=== PATIENT | male | born 1965 | race Caucasian/White ===

== ENCOUNTER 2019-02-24 01:47 | Emergency (ER) | payer BC, OTHER, SELFPAY ==
[2019-02-24] MEDS ORDERED: MORPHINE 4 MG/ML SYR ONE ×2 (02:41→04:08)
[2019-02-24] MEDS ORDERED: ONDANSETRON 4 MG/2 ML VIAL ONE (02:41)
[2019-02-24 02:52] LABS: Absolute Lymphocytes (CBC) 1.3 K/uL (0.7-4.9); Basophils % 0.8 % (0-1.3); Hematocrit 45.7 % (39.6-49.0); Lymphocytes % 19.3 % (15.3-44.8); MPV 9.2 fL (7.6-11.3); RBC Red Blood Cell Count 5.25 M/uL (4.33-5.43)
[2019-02-24 03:16] LABS: Potassium 4.3 mmol/L (3.5-5.1)
[2019-02-24 04:35] LABS: Urine Blood 3+ (NEG); Urine Glucose 2+ (NEG); Urine Protein NEGATIVE (NEG); Urine Specific Gravity 1.015 (1.005-1.030); Urine pH 5.5 (5.0-7.0)
--- NOTE | 2019-02-24 04:50 | ER ---
Nurse's Notes [facility] Name: Vasiliy Boyce Age: 53 yrs Sex: Male : 1965 Arrival Date: 02/24/2019 Time: 01:49 Bed 13 Private MD: Diagnosis: Hydrocele, unspecified;Varicocele Presentation: 02/24 02:02 Presenting complaint: Patient states: woke up at 12:15 with severe right testicular wh pain. Transition of care: patient was not received from another setting of care. Onset of symptoms was February 24, 2019. Risk Assessment: Do you want to hurt yourself or someone else? Patient reports no desire to harm self or others. Initial Sepsis Screen: Does the patient meet any 2 criteria? No. Patient's initial sepsis screen is negative. Does the patient have a suspected source of infection? No. Patient's initial sepsis screen is negative. Care prior to arrival: None. 02:02 Method Of Arrival: Ambulatory 02:02 Acuity: OZ 3 Historical: - Allergies: 02:04 No Known Allergies; - Home Meds: 02:04 None [Active]; - PMHx: 02:04 Borderline Diabetes; - PSHx: 02:04 Appendectomy; - Immunization history:: Adult Immunizations up to date. - Social history:: Smoking status: Patient/guardian denies using tobacco. - Ebola Screening: : Patient negative for fever greater than or equal to 101.5 degrees Fahrenheit, and additional compatible Ebola Virus Disease symptoms Patient denies exposure to infectious person. - Family history:: not pertinent. - Hospitalizations: : No recent hospitalization is reported. Screenin:05 Abuse screen: Denies threats or abuse. Denies injuries from another. Nutritional screening: No deficits noted. Tuberculosis screening: No symptoms or risk factors identified. Fall Risk None identified. Assessment: 02:04 General: Appears in no apparent distress. Behavior is calm, cooperative, appropriate for age. Pain: Complains of pain in Right testicle Pain radiates to back Pain currently is 7 out of 10 on a pain scale. Quality of pain is described as sharp, Pain began 2 hours ago. Neuro: Level of Consciousness is awake, alert, obeys commands, Oriented to person, place, time, situation, Appropriate for age. Cardiovascular: Capillary refill < 3 seconds. Respiratory: Airway is patent Respiratory effort is even, unlabored, Respiratory pattern is regular, symmetrical. GI: Abdomen is flat, non-distended. : No signs and/or symptoms were reported regarding the genitourinary system. EENT: No signs and/or symptoms were reported regarding the EENT system. Derm: Skin is intact, is healthy with good turgor, Skin is pink, warm \T\ dry. normal. Musculoskeletal: Circulation, motion, and sensation intact. 03:02 Reassessment: Patient appears in no apparent distress at this time. No changes from previously documented assessment. Patient and/or family updated on plan of care and expected duration. Pain level reassessed. Patient is alert, oriented x 3, equal unlabored respirations, skin warm/dry/pink. 04:17 Reassessment: Patient appears in no apparent distress at this time. No changes from previously documented assessment. Patient and/or family updated on plan of care and expected duration. Pain level reassessed. Patient is alert, oriented x 3, equal unlabored respirations, skin warm/dry/pink. MD at bedside explaning POC Patient states symptoms have improved. 05:07 Reassessment: Patient appears in no apparent distress at this time. No changes from previously documented assessment. Patient and/or family updated on plan of care and expected duration. Pain level reassessed. Patient is alert, oriented x 3, equal unlabored respirations, skin warm/dry/pink. Patient denies pain at this time. Patient states feeling better. Patient states symptoms have improved. Vital Signs: 02:06 BP 135 / 85; Pulse 72; Resp 18; Temp 98.4; Pulse Ox 96% ; Weight 117.93 kg; Height 5 wh ft. 10 in. (177.80 cm); Pain 7/10; 03:05 BP 115 / 85; Pulse 76; Resp 18; Pulse Ox 93% on R/A; wh 04:18 BP 113 / 72; Pulse 72; Resp 18; Pulse Ox 95% on R/A; 02:06 Body Mass Index 37.31 (117.93 kg, 177.80 cm) ED Course: 01:49 Patient arrived in ED. ds1 02:02 Yahir Galo is Primary Nurse. 02:03 Triage completed. 02:06 Arm band placed on right wrist. 02:06 Patient has correct armband on for positive identification. Placed in gown. Bed in low wh position. Call light in reach. Side rails up X 1. Pulse ox on. NIBP on. 02:12 Abdirashid Murray MD is Attending Physician. rn 02:35 Inserted saline lock: 20 gauge in right antecubital area, using aseptic technique. Blood collected. 03:05 CT completed. Patient tolerated procedure well. Patient moved to CT via stretcher. Patient moved back from CT. 03:09 CT Stone Protocol In Process Unspecified. EDMS 03:21 Ultrasound completed. Patient tolerated well. sg3 03:21 US Scrotum Testicles In Process Unspecified. sg3 03:38 Notified Primary Nurse . 3 05:08 No provider procedures requiring assistance completed. IV discontinued, intact, bleeding controlled, No redness/swelling at site. Administered Medications: 02:38 Drug: morphine 4 mg {Note: RASS 0.} Route: IVP; Site: right antecubital; 03:54 Follow up: Response: No adverse reaction; Pain is decreased; RASS: Alert and Calm (0) 02:40 Drug: Zofran 4 mg Route: IVP; Site: right antecubital; 03:54 Follow up: Response: No adverse reaction 04:08 Drug: morphine 4 mg Route: IVP; Site: right antecubital; 05:09 Follow up: Response: No adverse reaction; Pain is decreased; RASS: Alert and Calm (0) Outcome: 04:49 Discharge ordered by MD. rn 05:08 Discharged to home ambulatory, with family. 05:08 Condition: stable 05:08 Discharge instructions given to patient, family, Instructed on discharge instructions, follow up and referral plans. no drinking with medication, no driving heavy equipment, medication usage, POC Demonstrated understanding of instructions, follow-up care, medications, POC Prescriptions given X 2. 05:09 Patient left the ED. Signatures: Dispatcher [employer] EDKS Cedrick Pena Yeni Oconnell ds1 Abdirashid Murray MD MD rn Habalo, Yahir Lilly Stanton sg3 Corrections: (The following items were deleted from the chart) 07:05 03:53 In radiology for Scrotum Testicles+[email or web address]. EDMS sg3 07:05 03:53 Ultrasound completed. Patient tolerated well. [place] [id number] 07:05 03:53 Notified Primary Nurse . [place] [id number] 07:08 03:38 Ultrasound completed. Patient tolerated well. [place] [id number] 07:12 03:38 Ultrasound completed. Patient tolerated well. [place] [id number]
--- NOTE | 2019-02-24 04:51 | EDPHYS ---
Physician Documentation [facility] Name: Vasiliy Boyce Age: 53 yrs Sex: Male : 1965 Arrival Date: 02/24/2019 Time: 01:49 Bed 13 Private MD: ED Physician Abdirashid Murray HPI: 02/24 04:06 This 53 yrs old Male presents to ER via Ambulatory with complaints of rn Testicular Pain. 04:06 The patient presents with scrotal pain, of the right side, without swelling, without rn erythema. Onset: The symptoms/episode began/occurred 2 hour(s) ago. Modifying factors: The symptoms are alleviated by nothing, the symptoms are aggravated by nothing. Severity of symptoms: At their worst the symptoms were moderate, in the emergency department the symptoms are unchanged. The patient has not experienced similar symptoms in the past. Reports woke up with right scrotal pain, denies trauma, no urinary symptoms, no fever. No hx of testicular torsion. . Historical: - Allergies: 02:04 No Known Allergies; - Home Meds: 02:04 None [Active]; - PMHx: 02:04 Borderline Diabetes; - PSHx: 02:04 Appendectomy; - Immunization history:: Adult Immunizations up to date. - Social history:: Smoking status: Patient/guardian denies using tobacco. - Ebola Screening: : Patient negative for fever greater than or equal to 101.5 degrees Fahrenheit, and additional compatible Ebola Virus Disease symptoms Patient denies exposure to infectious person. - Family history:: not pertinent. - Hospitalizations: : No recent hospitalization is reported. ROS: 04:06 Constitutional: Negative for fever, chills, and weight loss, Eyes: Negative for injury, rn pain, redness, and discharge, Neck: Negative for injury, pain, and swelling, Cardiovascular: Negative for chest pain, palpitations, and edema, Respiratory: Negative for shortness of breath, cough, wheezing, and pleuritic chest pain, Abdomen/GI: Negative for abdominal pain, nausea, vomiting, diarrhea, and constipation, : Negative for injury, bleeding, discharge, and swelling, MS/Extremity: Negative for injury and deformity, Skin: Negative for injury, rash, and discoloration, Neuro: Negative for headache, weakness, numbness, tingling, and seizure. Exam: 04:06 Constitutional: This is a well developed, well nourished patient who is awake, alert, rn + appears in pain Head/Face: Normocephalic, atraumatic. Abdomen/GI: soft, non-tender Back: No spinal tenderness. No costovertebral tenderness. Full range of motion. Male : + mild right scrotal tenderness without masses, non-tender epididymis on either side, cremasteric reflexes present, no discoloration of tests, no inguinal hernias. MS/ Extremity: Pulses equal, no cyanosis. Neurovascular intact. Full, normal range of motion. Equal circumference. Vital Signs: 02:06 BP 135 / 85; Pulse 72; Resp 18; Temp 98.4; Pulse Ox 96% ; Weight 117.93 kg; Height 5 wh ft. 10 in. (177.80 cm); Pain 7/10; 03:05 BP 115 / 85; Pulse 76; Resp 18; Pulse Ox 93% on R/A; wh 04:18 BP 113 / 72; Pulse 72; Resp 18; Pulse Ox 95% on R/A; wh 02:06 Body Mass Index 37.31 (117.93 kg, 177.80 cm) wh MDM: 02:12 Patient medically screened. rn 02:20 ED course: Ultrasound called out to rule out testicular torsion. rn 03:22 ED course: Ultrasound called out and accelerator technician reports contacted at [phone], still no rn ultrasound performed. . 04:06 Differential diagnosis: UTI, hydrocele, varicocele, testicular torsion, epididymitis. rn Data reviewed: vital signs, nurses notes, lab test result(s), radiologic studies, CT scan, ultrasound, and as a result, I will discharge patient. Counseling: I had a detailed discussion with the patient and/or guardian regarding: the historical points, exam findings, and any diagnostic results supporting the discharge/admit diagnosis, lab results, radiology results, the need for outpatient follow up, to return to the emergency department if symptoms worsen or persist or if there are any questions or concerns that arise at home. Response to treatment: the patient's symptoms have markedly improved after treatment, and as a result, I will discharge patient. Special discussion: I discussed with the patient/guardian in detail that at this point there is no indication for admission to the hospital. It is understood, however, that if the symptoms persist or worsen the patient needs to return immediately for re-evaluation. ED course: U/S neg for torsion, shows bilateral hydroceles and varicoceles, ct no acute abdominal/pelvic findings. Ambulatory to bathroom without assistance or difficulty, much more comfortable. . 04:55 ED course: Possibly passed kidney stone given marked improvement and hematuria without rn infection. 02/24 02:20 Order name: Urine Culture rn 02/24 02:20 Order name: CBC with Diff; Complete Time: 03:17 rn 02/24 02:20 Order name: CT Stone Protocol rn 02/24 02:20 Order name: Basic Metabolic Panel; Complete Time: 03:55 rn 02/24 02:20 Order name: Urine Microscopic Only rn 02/24 04:16 Order name: Urine Dipstick--Ancillary (enter results); Complete Time: 04:49 cm6 02/24 02:20 Order name: Urine Dipstick-Ancillary (obtain specimen); Complete Time: 04:08 rn 02/24 02:20 Order name: IV Start; Complete Time: 02:45 rn 02/24 02:20 Order name: US Scrotum Testicles rn Administered Medications: 02:38 Drug: morphine 4 mg {Note: RASS 0.} Route: IVP; Site: right antecubital; 03:54 Follow up: Response: No adverse reaction; Pain is decreased; RASS: Alert and Calm (0) 02:40 Drug: Zofran 4 mg Route: IVP; Site: right antecubital; 03:54 Follow up: Response: No adverse reaction 04:08 Drug: morphine 4 mg Route: IVP; Site: right antecubital; 05:09 Follow up: Response: No adverse reaction; Pain is decreased; RASS: Alert and Calm (0) Disposition: 02/24/19 04:49 Discharged to Home. Impression: Hydrocele, unspecified, Varicocele. - Condition is Stable. - Discharge Instructions: Varicocele, Hydrocele, Adult. - Prescriptions for Ibuprofen 800 mg Oral Tablet - take 1 tablet by ORAL route every 12 hours As needed take with food; 20 tablet. Tylenol- Codeine #3 300-30 mg Oral Tablet - take 2 tablets by ORAL route every 6 hours As needed; 20 tablet. - Medication Reconciliation Form, Thank You Letter, Antibiotic Education, Prescription Opioid Use form. - Follow up: Private Physician; When: As needed; Reason: Recheck today's complaints, Re-evaluation by your physician. - Problem is new. - Symptoms have improved. Signatures: Dispatcher [employer] Abdirashid Grover MD MD rn Habalo, Winsy wh Corrections: (The following items were deleted from the chart) 05:09 04:49 02/24/2019 04:49 Discharged to Home. Impression: Hydrocele, unspecified; wh Varicocele. Condition is Stable. Forms are Medication Reconciliation Form, Thank You Letter, Antibiotic Education, Prescription Opioid Use. Follow up: Private Physician; When: As needed; Reason: Recheck today's complaints, Re-evaluation by your physician. Problem is new. Symptoms have improved. rn
[2019-02-24 05:17] VITALS: TEMP 98.4
[2019-02-24 05:20] VITALS: BP 113/72; O2SAT 95
[2019-02-24 05:42] LABS: Urine Bacteria <20 /HPF (NONE SEEN); Urine Culture Reflex Order NOT NEEDED; Urine RBC 20-50 /HPF (NONE SEEN)
--- NOTE | 2019-02-24 09:48 | RAD REPORT ---
EXAM DESCRIPTION: US - Scrotum Testicles - 02/24/2019 3:53 am CLINICAL HISTORY: Testicular pain COMPARISON: None FINDINGS: Right testicle measures 4.8 x 2.4 x 3 centimeters. Echotexture is homogeneous. Normal bloo d flow Left testicle measures 4.3 x 2 x 2.3 centimeters. Echotexture is homogeneous. Normal blood flow The epididymides are normal in size and echotexture. Normal blood flow is seen. Small bilateral hydroceles Bilateral varicoceles IMPRESSION: Bilateral varicoceles Small bilateral hydroceles
--- NOTE | 2019-02-25 08:47 | RAD REPORT ---
EXAM DESCRIPTION: CT - Stone Protocol - 02/24/2019 5:24 am CLINICAL HISTORY: The patient is 53 years old and is Male; right groin/testicular pain TECHNIQUE: Axial computed tomography images of the abdomen and pelvis without intravenous contrast. Sagittal and coronal reformatted images were created and reviewed. This CT exam was performed usi ng one or more of the following dose reduction techniques: automated exposure control, adjustment o f the mA and/or kV according to patient size, and/or use of iterative reconstruction technique. DLP: 2295 mGy*cm COMPARISON: None. FINDINGS: LUNG BASES: Minimal bibasilar atelectasis. Lung bases are otherwise clear. HEART: The heart is within normal limits. ABDOMEN: LIVER: Subcentimeter right hepatic hypodensity, too small to characterize by CT criteria. GALLBLADDER AND BILE DUCTS: Unremarkable. No calcified stones. No ductal dilation. PANCREAS: Unremarkable. No ductal dilation. SPLEEN: Unremarkable. No splenomegaly. ADRENALS: Unremarkable. No mass. KIDNEYS AND URETERS: Bilateral perinephric stranding. Mild fullness of the left renal collecting s ystem. Punctate nonobstructive stone in the inferior border of the left kidney. No hydronephrosis or hydroureter. STOMACH AND BOWEL: Unremarkable. No obstruction. No mucosal thickening. PELVIS: APPENDIX: No findings to suggest acute appendicitis. BLADDER: Unremarkable. No stones. REPRODUCTIVE: Scrotal content is not well evaluated. Suggested bilateral hydroceles and scrotal wa ll thickening. Additionally, suggestion of bilateral varicoceles, left greater than right. ABDOMEN and PELVIS: INTRAPERITONEAL SPACE: Unremarkable. No free air. No significant fluid collection. BONES/JOINTS: Lower lumbar facet arthropathy. No acute fracture. No dislocation. SOFT TISSUES: Unremarkable. VASCULATURE: Unremarkable. No abdominal aortic aneurysm. LYMPH NODES: Unremarkable. No enlarged lymph nodes. IMPRESSION: 1. No acute abdominal or pelvic abnormality. No obstructive uropathy. 2. Scrotal content is not well evaluated. Suggested bilateral hydroceles and scrotal wall thickenin g. Additionally, suggestion of bilateral varicoceles, left greater than right. Electronically signed by: Axel Huynh DO 02/24/2019 3:35 AM PROC TECH Due to temporary technical issues with the PACS/Fluency reporting system, reports are being signed by the in house radiologist as a courtesy to ensure prompt reporting. The interpreting radiologist is f ully responsible for the content of the report.
== END 2019-02-24 05:09 | disposition home or self-care (01) ==
LOC: ER 01:47
DX: N43.3 Hydrocele, unspecified (principal); I86.1 Scrotal varices
CPT/HCPCS: 87088; 85025; 80048; 36415; 76377; 74176; 76870; 96375; 96374; 99284; J2405; 81003; 81015; 87086